=== PATIENT | female | born 1960 | race Caucasian/White ===

== ENCOUNTER 2018-03-29 11:08 | Emergency (ER) | payer OTHER ==
[~2018-03-29] VITALS: Ht 162.6 cm; Wt 81.8 kg
[~2018-03-29 11:08] MED LIST: IBUP-2071 PO
[2018-03-29 11:50] VITALS: BP 121/82
[2018-03-29] MEDS ORDERED: KETOROLAC TROMETHAMINE 30 MG/ML VIAL IM ONE (12:30)
== END 2018-03-29 14:31 | disposition home or self-care (01) ==
LOC: EMS 11:09
DX: M17.11 Unilateral primary osteoarthritis, right knee (principal)
CPT/HCPCS: 73562; 96372; 99284; J1885